=== PATIENT | female | born 1970 | race Caucasian/White ===

== ENCOUNTER 2016-09-28 10:45 | Emergency (ER) | payer OTHER ==
[~2016-09-28] VITALS: Ht 162.6 cm; Wt 66.3 kg
[~2016-09-28 10:45] MED LIST: AMIT50TA3 PO; FLUO20CA34 PO
[2016-09-28 11:00] VITALS: Ht 162.6 cm; Wt 66.3 kg
[2016-09-28] MEDS ORDERED: SODIUM CHLORIDE 0.9% 1000ML 1,000 ML IV STA (11:30)
[2016-09-28 12:27] LABS: BASO % 0.3 %; BASO ABS # 0.02 K/uL (0-0.2); COMPLETE YES; EOS % 0.8 %; HEMATOCRIT 42.1 % (37-47); IG% 0.3 %; LYMPH % 23.1 %; LYMPH ABS # 1.36 K/uL (1.2-3.4); MEAN CELL VOLUME 87.5 fL (80-100); MEAN CORPUSCULAR HEMOGLOBIN 29.5 pg (25-34); MEAN CORPUSCULAR HGB CONC 33.7 g/dl (32-36); MEAN PLATELET VOLUME 9.5 fL (7.4-10.4); MONO % 15.1 %; NEUT % 60.4 %; PLATELET COUNT 291 K/uL (130-400); RED BLOOD COUNT 4.81 M/uL (4.2-5.4); WHITE BLOOD COUNT 5.89 K/uL (4.8-10.8)
[2016-09-28 12:28] LABS: URINE APPEARANCE CLEAR (CLEAR); URINE BILIRUBIN NEG (NEG); URINE COLOR YELLOW; URINE NITRITE NEG (NEG); URINE PH 7.5 (4.5-7.5); URINE SPECIFIC GRAVITY 1.006 (1.000-1.030); UROBILINOGEN NEG (NEG)
[2016-09-28 12:30] LABS: MANUAL MICROSCOPIC REQUIRED? NO; REVIEW REQ? NO
[2016-09-28 12:45] LABS: ALT/SGPT 18 U/L (12-78); AST/SGOT 17 U/L (15-37); BLOOD UREA NITROGEN 11 mg/dl (7-18); BUN/CREATININE RATIO 15.2 (10-20); CALCIUM 9.2 mg/dl (8.5-10.1); CARBON DIOXIDE 27 mmol/L (21-32); CHLORIDE 108 mmol/L (98-107); CREATININE 0.73 mg/dl (0.60-1.20); GLUCOSE 82 mg/dl (70-99); POTASSIUM 3.9 mmol/L (3.5-5.1); SODIUM 140 mmol/L (136-145)
[2016-09-28 12:48] LABS: ALKALINE PHOSPHATASE 56 U/L (45-117)
[2016-09-28 14:11] VITALS: BP 117/79; PULSE 62; TEMP 36.9; O2SAT 100
--- NOTE | 2016-09-28 18:00 | EMERGENCY ROOM VISIT NOTE ---
History Report prepared by Jose C: Caro Capps Under the Supervision of: Dr. Tommy Leong M.D. First contact with patient: 11:13 Chief Complaint: URINARY SYMPTOMS Stated Complaint: UTI/KIDNEY INFECTION History of Present Illness The patient is a 46 year old female who presents to the Emergency Room with complaints of constant urinary symptoms beginning 5 weeks ago. The patient states that she had urinary frequency for 2 weeks before testing her urine at the [employer] that she works at. She reports that her urine was not normal so she went to see her doctor who ran cultures and started her on Bactrim. She notes that she took the Bactrim for 11 days without relief of her symptoms before she called and found out that the cultures were never sent out. The patient states that she had her urine tested again at the office and was started on Cipro 8 days ago. She reports that she took 5 days of the medication before stopping it due to feeling nausea, dizziness, and achiness with no relief of her symptoms. The patient complains of lower back pain, slight abdominal pressure, hot flashes, and dizziness. She denies any vomiting, burning with urination, pain with urination, and known fevers. She reports that she had UTIs in her early 20s and would usually have dysuria. She notes that she had a procedure to clean her urethra when she was 21 and has not had any trouble since then. The patient states that she has a history of breast cancer and had a double mastectomy and radiation last year and notes that her urinary frequency may have started then. She is not sure if this has been going on for longer because she did not feel any pain with urination and the symptoms began gradually. Source of History: patient Onset: 5 weeks ago Position: other (urinary) Quality: other (frequency) Timing: constant Associated Symptoms: + abdominal pain, + back pain, No fevers, No vomiting Note: The patient complains of hot flashes and dizziness. She denies any burning with urination and pain with urination. Review of Systems See HPI for pertinent positives & negatives. A total of 10 systems reviewed and were otherwise negative. Past Medical & Surgical Medical Problems: (1) EXCESSIVE MENSTRUATION (2) Hysterectomy (3) Intraductal cancer of right breast Family History No pertinent family history stated. Social History Smoking Status: Current Every Day Smoker Marital Status: single Occupation Status: employed Current/Historical Medications No Active Prescriptions or Reported Meds Allergies Coded Allergies: Cephalexin (Unverified Adverse Reaction, Intermediate, "bugs all over entire body" itchy, 09/28/16) Clindamycin (Unverified Adverse Reaction, Intermediate, flu like symptoms , 09/28/16) Physical Exam Vital Signs Date Time Temp Pulse Resp B/P (MAP) Pulse Ox O2 Delivery O2 Flow Rate FiO2 09/28/16 14:11 36.9 62 18 117/79 100 09/28/16 13:01 117/79 09/28/16 11:00 36.9 96 20 128/86 99 Room Air Physical Exam Constitutional: Vital signs reviewed. Eyes: Pupils are equal round reactive to light. Conjunctiva are noninjected. ENT: Pharynx is clear without erythema or exudate. Mucous membranes are moist. Neck supple without meningeal signs. Respiratory: Clear to auscultation bilaterally. Breath sounds are equal bilaterally. Cardiovascular: Regular rate and rhythm. No rubs or gallops. GI: Soft, nondistended and nontender. Bowel sounds are present. Musculoskeletal: No peripheral edema. No CVA tenderness. Integumentary: No cyanosis. Neurological: The patient is awake and alert. No focal deficits. Psychiatric: Normal affect. Medical Decision & Procedures Laboratory Results 09/28/16 12:00 Red Blood Count 4.81, Mean Corpuscular Volume 87.5, Mean Corpuscular Hemoglobin 29.5, Mean Corpuscular Hemoglobin Concent 33.7, Mean Platelet Volume 9.5, Neutrophils (%) (Auto) 60.4, Lymphocytes (%) (Auto) 23.1, Monocytes (%) (Auto) 15.1, Eosinophils (%) (Auto) 0.8, Basophils (%) (Auto) 0.3, Neutrophils # (Auto ) 3.55, Lymphocytes # (Auto) 1.36, Monocytes # (Auto) 0.89, Eosinophils # (Auto ) 0.05, Basophils # (Auto) 0.02 09/28/16 12:00 Test 09/28/16 12:00 White Blood Count 5.89 K/uL (4.8-10.8) Red Blood Count 4.81 M/uL (4.2-5.4) Hemoglobin 14.2 g/dL (12.0-16.0) Hematocrit 42.1 % (37-47) Mean Corpuscular Volume 87.5 fL (80-100) Mean Corpuscular Hemoglobin 29.5 pg (25-34) Mean Corpuscular Hemoglobin Concent 33.7 g/dl (32-36) Platelet Count 291 K/uL (130-400) Mean Platelet Volume 9.5 fL (7.4-10.4) Neutrophils (%) (Auto) 60.4 % Lymphocytes (%) (Auto) 23.1 % Monocytes (%) (Auto) 15.1 % Eosinophils (%) (Auto) 0.8 % Basophils (%) (Auto) 0.3 % Neutrophils # (Auto) 3.55 K/uL (1.4-6.5) Lymphocytes # (Auto) 1.36 K/uL (1.2-3.4) Monocytes # (Auto) 0.89 K/uL (0.11-0.59) Eosinophils # (Auto) 0.05 K/uL (0-0.5) Basophils # (Auto) 0.02 K/uL (0-0.2) RDW Standard Deviation 39.6 fL (36.4-46.3) RDW Coefficient of Variation 12.3 % (11.5-14.5) Immature Granulocyte % (Auto) 0.3 % Immature Granulocyte # (Auto) 0.02 K/uL (0.00-0.02) Urine Color YELLOW Urine Appearance CLEAR (CLEAR) Urine pH 7.5 (4.5-7.5) Urine Specific [place] 1.006 (1.000-1.030) Urine Protein NEG (NEG) Urine Glucose (UA) NEG (NEG) Urine Ketones NEG (NEG) Urine Occult Blood NEG (NEG) Urine Nitrite NEG (NEG) Urine Bilirubin NEG (NEG) Urine Urobilinogen NEG (NEG) Urine Leukocyte Esterase NEG (NEG) Urine Test NEG (NEG) Anion Gap 5.0 mmol/L (3-11) Est Creatinine Clear Calc Drug Dose 91.2 ml/min Estimated GFR () 115.3 Estimated GFR (Non- 99.5 BUN/Creatinine Ratio 15.2 (10-20) Calcium Level 9.2 mg/dl (8.5-10.1) Total Bilirubin 0.3 mg/dl (0.2-1) Direct Bilirubin < 0.1 mg/dl (0-0.2) Aspartate Amino Transf (AST/SGOT) 17 U/L (15-37) Alanine Aminotransferase (ALT/SGPT) 18 U/L (12-78) Alkaline Phosphatase 56 U/L (45-117) Total Protein 8.1 gm/dl (6.4-8.2) Albumin 4.2 gm/dl (3.4-5.0) Lipase 182 U/L (73-393) Laboratory results as reviewed by me. Medications Administered Medications (Trade) Dose Ordered Sig/Andreina Route Start Time Stop Time Status Last Admin Dose Admin Sodium Chloride 1,000 ml @ 999 mls/hr Q1H1M STAT IV 09/28/16 11:30 09/28/16 12:30 DC 09/28/16 11:30 999 MLS/HR ED Course 1113: The patient was evaluated in room B2. A complete history and physical exam was performed. 1130: Sodium Chloride 1000 ml @ 999 mls/hr IV. 1135: Per review of her records, the patient had a urine culture September 21 that showed <10,000 colonies and normal magui. 1139: I talked to the patient about her culture results. She notes that she had a UTI in June that got better from with antibiotics. She states that she tried to get in to see a urologist but they are not able to see her until October. 1335: I spoke to the patient about her test results. The casey saw operator is trying to get her in to see urology. 1343: I updated the patient. She has an appointment with urology tomorrow at 1030. 1347: Upon reevaluation, the patient appeared to have improvement of her symptoms. I discussed bela's findings with the patient. She verbalized agreement of the treatment plan. The patient was discharged home. Medical Decision This is a 46-year-old female presents with urinary frequency. Differential diagnosis includes UTI, cystitis, functional dysuria, pyelonephritis. I did perform a limited focused review of portions of the patient's old chart on the electronic medical record. The patient has had no recent pertinent visits to this hospital. Medication Reconciliation: I attest that I have personally reviewed the patient' s current medication list. Blood Pressure Screening: Patient was found to have an elevated blood pressure and was referred to their primary doctor for recheck and further treatment. I did evaluate the patient as noted above. The patient is presenting with urinary frequency for over a month. She has been on 2 courses of antibiotics although she did not finish her Cipro. She did not have any relief of her symptoms with either antibiotic. Urine cultures were obtained from the [facility] system which were both negative. She denies any pain with urination and states that her symptoms do not feel like a UTI as she has had in the past. Her exam is benign and she has no abdominal tenderness or CVA tenderness. IV access was established. I did treat patient with normal saline IV. I did order and personally review the patient's urinalysis as described above. There is no evidence of infection. Urine test was negative. A urine culture was sent. I did order and review the patient's blood work as noted in the electronic medical record. Her white blood cell count is not elevated. Her renal function is normal. I did discuss the test results with the patient. She does have an appointment to see urology but states the appointment is not until October. I did have the casey saw operator call the [facility] the urology office and they were able to get an appointment tomorrow at 10:30 AM. The patient was happy with this plan and will follow up tomorrow with urology. She was discharged in good condition. Impression Primary Impression: Dysuria Scribe Attestation The scribe's documentation has been prepared under my direct and personally reviewed by me in its entirety. I confirm that the note above accurately reflects all work, treatment, procedures, and medical decision making performed by me. Departure Information Dispostion Home / Self-Care Prescriptions No Active Prescriptions or Reported Meds Referrals Barbara Peña D.O. (PCP) Forms HOME CARE DOCUMENTATION FORM, IMPORTANT VISIT INFORMATION Patient Instructions ED Dysuria Uncertain Cause, My [facility] Additional Instructions You have been examined and treated today on an emergency basis only. This is not a substitute for, or an effort to provide, complete comprehensive medical care. It is impossible to recognize and treat all injuries or illnesses in a single emergency department visit. It is therefore important that you follow up closely with urology tomorrow at 10:30 AM. Return for worsening symptoms or if you develop high fever, vomiting, abdominal pain or any other concerning symptoms.
== END 2016-09-28 14:00 | disposition home or self-care (01) ==
LOC: C.EDB 10:47
DX: R30.0 Dysuria (principal); Z85.3 Personal history of malignant neoplasm of breast; Z90.13 Acquired absence of bilateral breasts and nipples; Z92.3 Personal history of irradiation; F17.210 Nicotine dependence, cigarettes, uncomplicated; Z87.440 Personal history of urinary (tract) infections

== ENCOUNTER → 2016-09-29 | Outpatient (CLI) | payer OTHER | END | disposition home or self-care (01) | LOC: C.PATHSPEC 17:08 | PROVIDERS: ATTEND Urology | DX: R10.2 Pelvic and perineal pain (principal) ==

== ENCOUNTER → 2016-10-12 | Outpatient (CLI) | payer OTHER ==
--- NOTE | 2016-10-12 12:01 | DIAGNOSTIC IMAGING REPORT ---
ULTRASOUND ABDOMEN COMPLETE CLINICAL HISTORY: Lower abdominal pain. COMPARISON STUDY: Abdominal CT dated 05/09/2012. TECHNIQUE: Real-time, grayscale, and color flow sonography of the abdomen was performed. Images are reviewed in the transverse and longitudinal planes. FINDINGS: Liver: The liver is normal in size and echotexture. There is no intrahepatic biliary ductal dilatation. The main portal vein is patent. Gallbladder: The gallbladder is normal in appearance. No gallstones are identified. There is no gallbladder wall thickening or pericholecystic fluid. A sonographic Russo's sign is reportedly absent. The common bile duct measures up to 0.4 cm in diameter. Pancreas: Visualized portions of the pancreatic head and body are normal in appearance. Spleen: The spleen is normal in size and echotexture, measuring 9.2 cm in length. Kidneys: The kidneys are normal in size and echotexture. There is no hydronephrosis. The right kidney measures 10.6 cm in length and the left kidney measures 11.3 cm in length. No shadowing calculi are identified. Abdominal vasculature: Visualized portions of the abdominal aorta and IVC are normal as visualized. Ascites: None. Bladder: Normal as visualized. Both ureteral jets were seen. Pelvis: Survey images of the pelvis show evidence of previous hysterectomy. A cystic structure at the resection site may represent a nabothian cyst if the cervix was spared. This measures 1.4 cm. There is a 4.9 x 2.3 x 2.3 cm minimally complex appearing cystic structure identified in the right adnexa. This is located adjacent to the right ovary. This appears somewhat serpiginous and may represent hydrosalpinx. IMPRESSION: 1. No acute sonographic abnormality is identified in the abdomen. 2. The bladder is normal as visualized. 3. There is a cystic structure identified at the hysterectomy site. This marrow present a nabothian cyst if the cervix has been spared. Correlation with the patient's surgical history will be required. 4. There is a minimally complex cystic structure identified in the right adnexa which appears to be located adjacent to the right ovary. This appears somewhat serpiginous and may represent hydrosalpinx. A precautionary follow-up ultrasound in 1-2 months is recommended for reassessment. Alternatively, CT or MRI of the pelvis could be considered for further interrogation. Electronically signed by: Vadim Sinha M.D. 10/12/2016 12:00 PM Dictated Date/Time: 10/12/2016 11:44 AM
== END | disposition home or self-care (01) ==
LOC: C.ULTRBC 10:45
PROVIDERS: ATTEND Urology
DX: N39.0 Urinary tract infection, site not specified (principal); R10.2 Pelvic and perineal pain; R10.11 Right upper quadrant pain; R93.8 Abnormal findings on diagnostic imaging of other specified body structures

== ENCOUNTER → 2016-10-14 | Outpatient (CLI) | payer OTHER | END | disposition home or self-care (01) | LOC: C.LAB1850 15:35 | PROVIDERS: ATTEND Obstetrics & Gynecology | DX: N83.299 Other ovarian cyst, unspecified side (principal) ==

== ENCOUNTER → 2017-01-19 | Outpatient (CLI) | payer OTHER | END | disposition home or self-care (01) | LOC: C.LAB 12:41 | PROVIDERS: ATTEND Obstetrics & Gynecology | DX: N95.1 Menopausal and female climacteric states (principal) ==

== ENCOUNTER → 2017-02-01 | Outpatient (CLI) | payer OTHER | END | disposition home or self-care (01) | LOC: C.LAB 09:43 | PROVIDERS: ATTEND Nutritionist | DX: R53.83 Other fatigue (principal) ==